=== PATIENT | female | born 1990 | race American Indian/Alaskan Native ===

== ENCOUNTER 2020-01-23 05:35 | Emergency (ER) | payer SELFPAY ==
--- NOTE | 2020-01-23 06:04 | Emergency Department Report ---
<PIEDAD HUDSON S - Last Filed: 01/25/20 12:52> ED General Adult HPI - General Chief complaint: Psych Stated complaint: SUICIDAL IDEATIONS Time Seen by Provider: 01/23/20 06:03 - Related Data Previous Rx's Medication Instructions Recorded Last Taken Type DOXYCYCLINE Hyclate [Vibramycin 100 mg PO BID #24 tab 01/25/20 Unknown Rx CAP] Nitrofurantoin Bennett/M-Cryst 100 mg PO Q12HR #14 capsule 01/25/20 Unknown Rx [Macrobid CAP] Sertraline [Zoloft] 50 mg PO DAILY #30 tablet 01/25/20 Unknown Rx Allergies Allergy/AdvReac Type Severity Reaction Status Date / Time No Known Allergies Allergy Unverified 01/23/20 05:56 ED Past Medical Hx - Medications Home Medications: Home Medications Medication Instructions Recorded Confirmed Last Taken Type DOXYCYCLINE Hyclate [Vibramycin 100 mg PO BID #24 tab 01/25/20 Unknown Rx CAP] Nitrofurantoin Bennett/M-Cryst 100 mg PO Q12HR #14 capsule 01/25/20 Unknown Rx [Macrobid CAP] Sertraline [Zoloft] 50 mg PO DAILY #30 tablet 01/25/20 Unknown Rx ED Medical Decision Making - Lab Data Result diagrams: 01/23/20 06:31 01/23/20 14:20 - Medical Decision Making I was brought this patient's chart after the psychiatric team evaluated the patient today, rescinded the 1013, and deemed the patient appropriate for discharge. The patient does deny any current suicidal ideations. She denies homicidal ideations. She is awake, oriented, and does not express any acute psychosis. The patient will be discharged home with outpatient referrals for psychiatry, TUNNEL MINER, and primary care. She has been given a prescription to continue her doxycycline. She was written for Zoloft by the psychiatric team. The patient has been instructed to return to the emergency department with any worsening of her symptoms, thoughts of harming herself or others, or with any acute distress. ED Disposition Clinical Impression: Alcoholic liver disease, Hypokalemia, Hypomagnesemia, Acute abdominal pain, History of chest pain, Suicidal ideation, History of syncope, History of drug overdose, Medical clearance for psychiatric admission, Thrombocytopenia, Trichomoniasis, PID (acute pelvic inflammatory disease), Ovarian cyst, Hydrosalpinx Disposition: DC-01 TO HOME OR SELFCARE Is pt being admited?: No Condition: Good Instructions: Suicidal Feelings: How to Help Yourself, Pelvic Inflammatory Dise ase Additional Instructions: Please follow-up with the [facility] facility, or any of the outpatient referrals given to you by the psychiatric team. Please follow-up with a primary care physician in the next few days. Please follow-up with an TUNNEL MINER. Take your medications as prescribed. Return to the emergency department with any worsening of your symptoms, thoughts of harming self or others, or with any acute distress. Outpatient [facility] Resources: [facility] ([facility]) [address] [place] [address] / Saturday thru Saturday - 8am - 5pm [facility] Address: [address] [place] [address] Saturday thru Saturday- 7am-2pm [facility] Address: [address] [place] [address] Saturday thru Saturday: 8:30AM-5PM CRISIS RESOURCES OR Crisis Line: Suicide Prevention Line: Crisis Text Line: Text [place] to [phone] Emergency: 911 Prescriptions: Nitrofurantoin Bennett/M-Cryst [Macrobid CAP] 100 mg PO Q12HR #14 capsule DOXYCYCLINE Hyclate [Vibramycin CAP] 100 mg PO BID #24 tab Sertraline [Zoloft] 50 mg PO DAILY #30 tablet Referrals: [facility] [Provider Group] - 3-5 Days [facility] [Provider Group] - 3-5 Days [facility] [Outside] - 3-5 Days [facility] [Primary Care Provider] - 3-5 Days <TOMY BRADLEY - Last Filed: 01/25/20 20:26> ED General Adult HPI - General PUI?: No Source: patient, EMS (Verbal report received from emergency medical services. EMS documentation not available at time of chart dictation ), RN notes reviewed Mode of arrival: Stretcher Limitations: Physical Limitation, Other (Intoxicated, disorganized, and patient is a poor historian) - History of Present Illness Initial comments: The patient was evaluated in the emergency department for symptoms described in the history of present illness. He/she was evaluated in the context of the global COVID-19 pandemic, which necessitated consideration that the patient might be at risk for infection with the virus that causes COVID-19. Institutional protocols and algorithms that pertain to the evaluation of patients at risk for COVID-19 are in a state of rapid change based on information released by regulatory bodies including the CDC and federal and state organizations. These policies and algorithms were followed during the patient's care in the emergency department. Please note that these policies, procedures and recommendations changed on a rapid basis. Patient is a 29-year-old female. She is not known to myself previously. Apparently she has a history of bipolar and asthma. She is brought to the hospital by emergency medical services. Patient reportedly attempted to overdose on ecstasy and street drugs, unknown what time of ingestion, as well as alcohol. Reportedly, she was trying to commit suicide. After the reported ingestion, she apparently called 911. Police Department and EMS arrived at the scene, where they indicate that the patient was in a [place] house. EMS w reports to myself that patient may have fainted, there are no bystanders that can offer collateral information or additional history. Patient herself is intoxicated, disorganized and tearful. She states that she attempted to overdose on ecstasy, alcohol and street drugs. She is not sure if she took Tylenol or aspirin. She does not know exactly what time the ingestion took place. Patient also states that she has chest pain which she has difficulty describing. Patient also describes paralumbar and lower back pain, and abdominal pain. The patient is not sure if she hit her head. She is not sure if she is having headache, neck pain. Patient is intoxicated, disorganized and a poor historian, she therefore has difficulty describing the qualitative nature of her symptoms. She indicates that her abdominal pain increases with palpation. She does not describe exacerbating or relieving factors for her chest pain, or lower back pain. She states that she is depressed and suicidal. She has difficulty further elaborating on this. -: unknown Location: chest, back, abdomen Radiation: other Quality: other Consistency: other Improves with: other Worsens with: other Associated Symptoms: other ED Review of Systems ROS: Stated complaint: SUICIDAL IDEATIONS Other details as noted in HPI Comment: Unobtainable due to pts medical conditions (As per history of present illness) ED Past Medical Hx - Past Medical History Previous Medical History?: Yes Hx Psychiatric Treatment: Yes (bipolar) Hx Asthma: Yes - Surgical History Past Surgical History?: No - Social History Smoking Status: Current Every Day Smoker Substance Use Type: Alcohol, Cocaine, Marijuana, Prescribed, Other ED Physical Exam - General Limitations: Other (Intoxicated, disorganized, and a poor historian) General appearance: appears intoxicated, anxious, in distress, obese - Head Head exam: Present: atraumatic, normocephalic - Eye Eye exam: Present: normal appearance, EOMI. Absent: nystagmus - ENT ENT exam: Present: normal exam, mucous membranes dry, normal external ear exam - Neck Neck exam: Present: normal inspection, full ROM. Absent: tenderness, meningismus - Respiratory Respiratory exam: Present: normal lung sounds bilaterally. Absent: respiratory distress, wheezes, rales, rhonchi, stridor, decreased breath sounds - Cardiovascular Cardiovascular Exam: Present: normal rhythm, tachycardia, normal heart sounds. Absent: systolic murmur, diastolic murmur, rubs, gallop - GI/Abdominal GI/Abdominal exam: Present: soft, tenderness. Absent: distended, guarding, rebound, rigid, pulsatile mass - External exam: Present: normal external exam, other (Chaperoned by nurse [facility]). Absent: erythema, swelling, lesions, lacerations, ecchymosis, bleeding Speculum exam: Present: normal speculum exam, vaginal discharge, other (Chaperoned by nurse [facility]). Absent: erythema, cervical discharge, vaginal bleeding, foreign body, tissue, laceration Bi-manual exam: Present: cervical motion tendernes. Absent: adnexal tenderness, adnexal mass, uterine enlargement, uterine tenderness - Extremities Exam Extremities exam: Present: normal inspection, full ROM, other (2+ pulses noted in the bilateral upper and lower extremities. There is no palpable cord. negative Homans sign. Muscular compartments are soft. The pelvis is stable.). Absent: pedal edema, calf tenderness - Back Exam Back exam: Present: normal inspection, full ROM. Absent: tenderness, CVA tenderness (R), CVA tenderness (L), paraspinal tenderness, vertebral tenderness - Neurological Exam Neurological exam: Present: alert, other (No facial droop. Tongue midline. Extraocular movements intact bilaterally. Facial sensation intact to light touch in V1, V2, V3 distribution bilaterally. 5 and a 5 strength in 4 extremities. Sensation intact to light touch in 4 extremities.) - Psychiatric Psychiatric exam: Present: agitated, anxious, suicidal ideation - Skin Skin exam: Present: warm, dry, intact, normal color. Absent: rash ED Course Vital Signs 01/23/20 01/23/20 01/23/20 05:57 06:10 06:30 Temperature 98.7 F 98.3 F Pulse Rate 115 H 117 H 116 H Respiratory 18 18 18 Rate Blood Pressure 142/90 134/103 Blood Pressure 128/89 [Left] O2 Sat by Pulse 100 100 100 Oximetry 01/23/20 01/23/20 01/23/20 06:51 07:00 07:15 Temperature Pulse Rate 130 H 107 H 113 H Respiratory 20 18 13 Rate Blood Pressure 134/103 129/100 126/96 Blood Pressure [Left] O2 Sat by Pulse 97 100 99 Oximetry 01/23/20 01/23/20 01/23/20 07:30 07:45 07:54 Temperature Pulse Rate 103 H 101 H Respiratory 15 19 16 Rate Blood Pressure 134/99 138/102 Blood Pressure [Left] O2 Sat by Pulse 99 99 100 Oximetry 01/23/20 01/23/20 01/23/20 08:07 08:15 08:30 Temperature Pulse Rate 115 H 114 H 107 H Respiratory 22 15 18 Rate Blood Pressure 138/102 143/96 143/91 Blood Pressure [Left] O2 Sat by Pulse 96 99 99 Oximetry 01/23/20 01/23/20 01/23/20 10:15 12:31 12:45 Temperature Pulse Rate 120 H 137 H 118 H Respiratory 18 21 22 Rate Blood Pressure 136/96 133/80 133/80 Blood Pressure [Left] O2 Sat by Pulse 100 100 100 Oximetry 01/23/20 01/23/20 01/23/20 13:00 13:15 13:31 Temperature Pulse Rate 126 H 114 H 117 H Respiratory 24 22 22 Rate Blood Pressure 132/82 132/82 132/82 Blood Pressure [Left] O2 Sat by Pulse 100 100 100 Oximetry 01/23/20 01/23/20 01/23/20 13:45 14:15 14:31 Temperature Pulse Rate 118 H 116 H 112 H Respiratory 25 H 24 20 Rate Blood Pressure 132/82 124/75 124/75 Blood Pressure [Left] O2 Sat by Pulse 98 98 99 Oximetry 01/23/20 01/23/20 01/23/20 14:42 14:45 15:00 Temperature Pulse Rate 112 H 111 H Respiratory 16 18 21 Rate Blood Pressure 124/75 137/80 Blood Pressure [Left] O2 Sat by Pulse 99 97 Oximetry 01/23/20 01/23/20 01/23/20 15:15 15:31 15:45 Temperature Pulse Rate 110 H 111 H 109 H Respiratory 21 20 18 Rate Blood Pressure 137/80 137/80 137/80 Blood Pressure [Left] O2 Sat by Pulse 97 97 98 Oximetry 01/23/20 01/23/20 01/23/20 16:00 16:31 16:45 Temperature Pulse Rate 113 H 113 H 114 H Respiratory 20 22 22 Rate Blood Pressure 137/80 134/76 134/76 Blood Pressure [Left] O2 Sat by Pulse 97 97 100 Oximetry 01/23/20 01/23/20 01/23/20 17:00 17:15 17:31 Temperature Pulse Rate 104 H 102 H 109 H Respiratory 21 22 23 Rate Blood Pressure 122/73 122/73 122/73 Blood Pressure [Left] O2 Sat by Pulse 98 98 98 Oximetry 01/23/20 01/23/20 01/23/20 17:45 18:15 18:31 Temperature Pulse Rate 112 H 112 H 107 H Respiratory 26 H 20 22 Rate Blood Pressure 122/73 116/75 122/73 Blood Pressure [Left] O2 Sat by Pulse 100 100 99 Oximetry 01/23/20 01/23/20 01/23/20 18:45 18:49 19:00 Temperature Pulse Rate 105 H 107 H 106 H Respiratory 21 23 21 Rate Blood Pressure 122/73 122/73 117/72 Blood Pressure [Left] O2 Sat by Pulse 100 100 98 Oximetry 01/23/20 01/23/20 01/23/20 19:15 19:31 19:41 Temperature Pulse Rate 102 H 104 H Respiratory 20 18 18 Rate Blood Pressure 117/72 119/72 Blood Pressure [Left] O2 Sat by Pulse 98 100 100 Oximetry 01/23/20 01/23/20 01/23/20 19:45 20:00 20:15 Temperature Pulse Rate 102 H 111 H 98 H Respiratory 19 21 18 Rate Blood Pressure 119/72 118/85 118/85 Blood Pressure [Left] O2 Sat by Pulse 100 98 100 Oximetry 01/23/20 01/23/20 01/23/20 20:31 20:45 21:01 Temperature Pulse Rate 117 H 97 H 107 H Respiratory 22 21 19 Rate Blood Pressure 118/85 118/85 57/31 Blood Pressure [Left] O2 Sat by Pulse 99 97 96 Oximetry 01/23/20 01/23/20 01/23/20 21:15 21:31 21:45 Temperature Pulse Rate 100 H 109 H 99 H Respiratory 22 23 21 Rate Blood Pressure 57/31 57/31 57/31 Blood Pressure [Left] O2 Sat by Pulse 96 98 98 Oximetry 01/23/20 01/23/20 01/23/20 22:00 22:15 22:31 Temperature Pulse Rate 105 H 105 H 103 H Respiratory 20 21 21 Rate Blood Pressure 118/72 118/72 118/72 Blood Pressure [Left] O2 Sat by Pulse 97 96 Oximetry 01/23/20 01/23/20 01/23/20 22:45 23:00 23:15 Temperature Pulse Rate 109 H 101 H 111 H Respiratory 20 18 23 Rate Blood Pressure 118/72 118/75 118/75 Blood Pressure [Left] O2 Sat by Pulse 98 100 Oximetry 01/23/20 01/23/20 01/24/20 23:31 23:45 00:01 Temperature Pulse Rate 110 H 113 H 115 H Respiratory 20 22 21 Rate Blood Pressure 118/75 118/75 119/80 Blood Pressure [Left] O2 Sat by Pulse 100 100 91 Oximetry 01/24/20 01/24/20 01/24/20 00:15 00:31 00:45 Temperature Pulse Rate 111 H 114 H 112 H Respiratory 20 21 22 Rate Blood Pressure 119/80 119/80 119/80 Blood Pressure [Left] O2 Sat by Pulse 100 99 99 Oximetry 01/24/20 01/24/20 01/24/20 01:00 01:15 02:00 Temperature Pulse Rate 108 H 108 H 105 H Respiratory 23 16 22 Rate Blood Pressure 123/86 119/80 119/89 Blood Pressure [Left] O2 Sat by Pulse 99 98 98 Oximetry 01/24/20 01/24/20 01/24/20 02:15 02:31 02:45 Temperature Pulse Rate 107 H 105 H 105 H Respiratory 20 23 18 Rate Blood Pressure 123/86 123/86 123/86 Blood Pressure [Left] O2 Sat by Pulse 99 98 97 Oximetry 01/24/20 01/24/20 01/24/20 03:00 03:15 03:31 Temperature Pulse Rate 101 H 105 H 105 H Respiratory 16 19 18 Rate Blood Pressure 126/89 126/89 126/89 Blood Pressure [Left] O2 Sat by Pulse 97 96 Oximetry 01/24/20 01/24/20 01/24/20 03:45 04:03 04:15 Temperature Pulse Rate 104 H Respiratory 19 Rate Blood Pressure 126/89 126/89 126/89 Blood Pressure [Left] O2 Sat by Pulse 97 84 98 Oximetry 01/24/20 01/24/20 01/24/20 04:31 04:45 05:00 Temperature Pulse Rate 110 H 117 H 107 H Respiratory 22 19 20 Rate Blood Pressure 126/89 126/89 124/78 Blood Pressure [Left] O2 Sat by Pulse 97 97 Oximetry 01/24/20 01/24/20 01/24/20 05:15 05:31 05:45 Temperature Pulse Rate 114 H 108 H 103 H Respiratory 25 H 17 17 Rate Blood Pressure 126/89 126/89 126/89 Blood Pressure [Left] O2 Sat by Pulse 100 97 100 Oximetry 01/24/20 01/24/20 01/24/20 06:00 06:15 06:31 Temperature Pulse Rate 99 H 112 H 111 H Respiratory 18 21 15 Rate Blood Pressure 131/76 131/76 131/76 Blood Pressure [Left] O2 Sat by Pulse 98 98 Oximetry 01/24/20 01/24/20 01/24/20 06:45 07:00 07:47 Temperature 98.1 F Pulse Rate 124 H 108 H 90 Respiratory 16 22 18 Rate Blood Pressure 131/76 133/78 Blood Pressure 123/79 [Left] O2 Sat by Pulse 100 98 Oximetry 01/24/20 01/24/20 01/25/20 08:43 20:41 01:54 Temperature 98.6 F 98.0 F Pulse Rate 100 H 102 H Respiratory 18 20 18 Rate Blood Pressure Blood Pressure 146/78 138/90 [Left] O2 Sat by Pulse 96 100 Oximetry 01/25/20 08:07 Temperature 98.6 F Pulse Rate 70 Respiratory 18 Rate Blood Pressure Blood Pressure 139/89 [Left] O2 Sat by Pulse 99 Oximetry - Reevaluation(s) Reevaluation #1: 01/23/20 06:21 Differential diagnosis, including but not limited to: Overdose, suicidality, closed head injury, cervical spine injury, pneumonia, intra-abdominal infection, abdominal wall sprain/strain, obstruction, pulmonary embolism, medical clearance for psychiatric placement Assessment and plan: 29-year-old female who is intoxicated, impaired, disorganized and a poor historian, who contacted emergency medical services after overdose, and reports having fainted. Patient is afebrile with reassuring vital signs with exception of tachycardia. She is diffusely tender over her abdomen. 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 Her tachycardia is likely secondary to anxiety, ecstasy ingestion, and dehydration. She is not hypoxic or tachypneic. I think a pulmonary embolism is unlikely, however, D-dimer is pending. Based off of the history, I do find the patient to be low risk by Wells criteria and pretest probability for pulmonary embolism. Most likely diagnosis is orthostasis, polysubstance intoxication, with noncardiac chest pain Reevaluation #2: 01/23/20 07:23 D-dimer negative. Troponin negative. Patient at very low risk for major adverse cardiac event as per heart score. Laboratory studies demonstrate mild leukopenia, thrombocytopenia, hyponatremia, hypokalemia, hypomagnesemia, and transaminitis. All of these are likely secondary to to alcoholism. Metabolic acidosis also likely secondary to the aforementioned. D-dimer negative. X-ray of the chest, CT scan of the brain, CT scan of the cervical spine negative. Patient is also not . We will continue IV fluids, initiate potassium and magnesium replenishment. Standing orders also initiated for alcohol withdrawal, as well as a multivitamin and folic acid. Urinalysis is pending at this time. EKG morphology likely secondary to mild hypokalemia and mild hypomagnesemia. CT scan abdomen pelvis is pending at this time. 01/23/20 07:28 Reevaluation #3: 01/23/20 07:53 Tachycardia improving, heart rate 106 bpm. Patient eating and drinking without difficulty. Patient was fed without my personal knowledge. CT scan abdomen pelvis, right upper quadrant ultrasound pending. 01/23/20 09:57 CT scan of the abdomen pelvis is reviewed and appreciated. Pelvic ultrasound ordered. Gynecologic examination performed. Belly improved on repeat examination. Patient eating and drinking without difficulty. Formal interpretation of ultrasound pending. Urinalysis pending. Repeat labs, troponin, EKG pending. Patient with minimal cervical motion tenderness on pelvic exam, however, no significant adnexal tenderness. What appears to be whitish physiologic discharge noted on pelvic exam 01/23/20 09:57 Reevaluation #4: 01/23/20 11:49 Reassessed. Eating food. Abdominal exam improved. Belly soft on repeat exam. Right upper quadrant ultrasound suggestive of fatty liver disease. Pelvic ultrasound not suggestive of ovarian torsion or tubo-ovarian abscess. Wet prep shows trichomoniasis. We will treat empirically with Flagyl, ceftriaxone and do xycycline for presumed pelvic inflammatory disease and trichomoniasis. Repeat basic metabolic panel worsened. This is likely because patient has not received full complement of ordered IV fluids, and potassium/magnesium replenishment. Repeat basic metabolic panel and labs ordered for 1:30 PM. Assuming improvement in anion gap acidosis, improvement in electrolytes, anticipate suitability for psychiatric placement. Repeat EKG unchanged from prior. It is not consistent with a STEMI. 01/24/20 06:47 Reevaluation #5: 01/23/20 14:56 Repeat laboratory studies have reviewed and appreciated. Anion gap has closed. Hypomagnesemia is improving. Mild decrease in calcium is likely dilutional. Tachycardia improving, patient resting comfortably at this time. At this point in time, patient does not appear to have an immediate medical contraindication to psychiatric admission, evaluation and consultation. We will continue antibiotic therapy, potassium supplementation, magnesium supplementation, pending placement. 01/23/20 14:56 please note that if the patient were not placed on a 1013 hold or psychiatric hold, she will be discharged for her presumptive trichomoniasis and PID, with appropriate antibiotics, pain medication and nausea medication, instructions to follow-up with a primary care doctor or auto clutch rebuilder.. She would also be discharged to follow-up with her primary care doctor for her transaminitis, electrolyte derangements, and thrombocytopenia, with instructions to abstain from alcohol consumption. This patient does not meet criteria at this time for inpatient hospitalization or admission. 01/25/20 20:24 Patient was discharged earlier on today. Unclear if urine cultures are reviewed. I have reviewed the urine culture. Patient may have simultaneous PID, as well as bacteriuria. Macrobid prescription is ordered by myself, will be printed out, after review of culture results. I will give the prescription to the charge nurse, and have her contact the patient to arrange pickup of prescription. ED Medical Decision Making - Lab Data Result diagrams: 01/23/20 06:31 01/23/20 14:20 Vital Signs 01/23/20 01/23/20 05:57 06:10 Temperature 98.7 F 98.3 F Pulse Rate 115 H 117 H Respiratory 18 18 Rate Blood Pressure 142/90 Blood Pressure 128/89 [Left] O2 Sat by Pulse 100 100 Oximetry Vital Signs 01/23/20 01/23/20 05:57 06:10 Temperature 98.7 F 98.3 F Pulse Rate 115 H 117 H Respiratory 18 18 Rate Blood Pressure 142/90 Blood Pressure 128/89 [Left] O2 Sat by Pulse 100 100 Oximetry Lab Results 01/23/20 01/23/20 01/23/20 Range/Units 06:31 06:31 06:31 WBC 4.2 L (4.5-11.0) K/mm3 RBC 4.72 (3.65-5.03) M/mm3 Hgb 12.7 (10.1-14.3) gm/dl Hct 38.5 (30.3-42.9) % MCV 82 (79-97) fl MCH 27 L (28-32) pg MCHC 33 (30-34) % RDW 33.5 H (13.2-15.2) % Plt Count 70 L (140-440) K/mm3 PT 15.1 H (12.2-14.9) Sec. INR 1.17 H (0.87-1.13) APTT 33.4 (24.2-36.6) Sec. D-Dimer 222.43 (0-234) ng/mlDDU Sodium 131 L (137-145) mmol/L Potassium 3.1 L (3.6-5.0) mmol/L Chloride 87.5 L (98-107) mmol/L Carbon Dioxide 23 (22-30) mmol/L Anion Gap 24 mmol/L BUN 8 (7-17) mg/dL Creatinine 0.8 (0.6-1.2) mg/dL Estimated GFR > 60 ml/min BUN/Creatinine Ratio 10 % Glucose 115 H (65-100) mg/dL Calcium 9.9 (8.4-10.2) mg/dL Magnesium (1.7-2.3) mg/dL Total Bilirubin 2.50 H (0.1-1.2) mg/dL AST 199 H (5-40) units/L ALT 79 H (7-56) units/L Alkaline Phosphatase 86 (35-129) units/L Total Creatine Kinase (30-135) units/L Troponin T < 0.010 (0.00-0.029) ng/mL Total Protein 9.3 H (6.3-8.2) g/dL Albumin 4.5 (3.9-5) g/dL Albumin/Globulin Ratio 0.9 % Lipase (13-60) units/L HCG, Quant (0-4) mIU/mL Salicylates (2.8-20.0) mg/dL Acetaminophen (10.0-30.0) ug/mL Plasma/Serum Alcohol (0-0.07) % 01/23/20 01/23/20 01/23/20 Range/Units 06:31 06:31 06:31 WBC (4.5-11.0) K/mm3 RBC (3.65-5.03) M/mm3 Hgb (10.1-14.3) gm/dl Hct (30.3-42.9) % MCV (79-97) fl MCH (28-32) pg MCHC (30-34) % RDW (13.2-15.2) % Plt Count (140-440) K/mm3 PT (12.2-14.9) Sec. INR (0.87-1.13) APTT (24.2-36.6) Sec. D-Dimer (0-234) ng/mlDDU Sodium (137-145) mmol/L Potassium (3.6-5.0) mmol/L Chloride (98-107) mmol/L Carbon Dioxide (22-30) mmol/L Anion Gap mmol/L BUN (7-17) mg/dL Creatinine (0.6-1.2) mg/dL Estimated GFR ml/min BUN/Creatinine Ratio % Glucose (65-100) mg/dL Calcium (8.4-10.2) mg/dL Magnesium (1.7-2.3) mg/dL Total Bilirubin (0.1-1.2) mg/dL AST (5-40) units/L ALT (7-56) units/L Alkaline Phosphatase (35-129) units/L Total Creatine Kinase (30-135) units/L Troponin T (0.00-0.029) ng/mL Total Protein (6.3-8.2) g/dL Albumin (3.9-5) g/dL Albumin/Globulin Ratio % Lipase (13-60) units/L HCG, Quant 0.579 (0-4) mIU/mL Salicylates < 0.3 L (2.8-20.0) mg/dL Acetaminophen 5.0 L (10.0-30.0) ug/mL Plasma/Serum Alcohol (0-0.07) % 01/23/20 01/23/20 01/23/20 Range/Units 06:31 06:31 06:31 WBC (4.5-11.0) K/mm3 RBC (3.65-5.03) M/mm3 Hgb (10.1-14.3) gm/dl Hct (30.3-42.9) % MCV (79-97) fl MCH (28-32) pg MCHC (30-34) % RDW (13.2-15.2) % Plt Count (140-440) K/mm3 PT (12.2-14.9) Sec. INR (0.87-1.13) APTT (24.2-36.6) Sec. D-Dimer (0-234) ng/mlDDU Sodium (137-145) mmol/L Potassium (3.6-5.0) mmol/L Chloride (98-107) mmol/L Carbon Dioxide (22-30) mmol/L Anion Gap mmol/L BUN (7-17) mg/dL Creatinine (0.6-1.2) mg/dL Estimated GFR ml/min BUN/Creatinine Ratio % Glucose (65-100) mg/dL Calcium (8.4-10.2) mg/dL Magnesium 1.30 L (1.7-2.3) mg/dL Total Bilirubin (0.1-1.2) mg/dL AST (5-40) units/L ALT (7-56) units/L Alkaline Phosphatase (35-129) units/L Total Creatine Kinase 147 H (30-135) units/L Troponin T (0.00-0.029) ng/mL Total Protein (6.3-8.2) g/dL Albumin (3.9-5) g/dL Albumin/Globulin Ratio % Lipase 92 H (13-60) units/L HCG, Quant (0-4) mIU/mL Salicylates (2.8-20.0) mg/dL Acetaminophen (10.0-30.0) ug/mL Plasma/Serum Alcohol 0.03 (0-0.07) % Vital Signs 01/23/20 01/23/20 01/23/20 05:57 06:10 06:30 Temperature 98.7 F 98.3 F Pulse Rate 115 H 117 H 116 H Respiratory 18 18 18 Rate Blood Pressure 142/90 134/103 Blood Pressure 128/89 [Left] O2 Sat by Pulse 100 100 100 Oximetry 01/23/20 01/23/20 01/23/20 06:51 07:00 07:15 Temperature Pulse Rate 130 H 107 H 113 H Respiratory 20 18 13 Rate Blood Pressure 134/103 129/100 126/96 Blood Pressure [Left] O2 Sat by Pulse 97 100 99 Oximetry 01/23/20 01/23/20 01/23/20 07:30 07:45 07:54 Temperature Pulse Rate 103 H 101 H Respiratory 15 19 16 Rate Blood Pressure 134/99 138/102 Blood Pressure [Left] O2 Sat by Pulse 99 99 100 Oximetry 01/23/20 01/23/20 01/23/20 08:07 08:15 08:30 Temperature Pulse Rate 115 H 114 H 107 H Respiratory 22 15 18 Rate Blood Pressure 138/102 143/96 143/91 Blood Pressure [Left] O2 Sat by Pulse 96 99 99 Oximetry 01/23/20 01/23/20 01/23/20 10:15 12:31 12:45 Temperature Pulse Rate 120 H 137 H 118 H Respiratory 18 21 22 Rate Blood Pressure 136/96 133/80 133/80 Blood Pressure [Left] O2 Sat by Pulse 100 100 100 Oximetry 01/23/20 01/23/20 01/23/20 13:00 13:15 13:31 Temperature Pulse Rate 126 H 114 H 117 H Respiratory 24 22 22 Rate Blood Pressure 132/82 132/82 132/82 Blood Pressure [Left] O2 Sat by Pulse 100 100 100 Oximetry 01/23/20 01/23/20 01/23/20 13:45 14:15 14:31 Temperature Pulse Rate 118 H 116 H 112 H Respiratory 25 H 24 20 Rate Blood Pressure 132/82 124/75 124/75 Blood Pressure [Left] O2 Sat by Pulse 98 98 99 Oximetry 01/23/20 14:42 Temperature Pulse Rate Respiratory 16 Rate Blood Pressure Blood Pressure [Left] O2 Sat by Pulse Oximetry - EKG Data -: EKG Interpreted by Ri EKG shows normal: sinus rhythm Rate: tachycardia - EKG Data When compared to previous EKG there are: previous EKG unavailable 01/23/20 06:23 Sinus rhythm, tachycardia, normal axis, QTC 542 ms, borderline high left ventricular voltage, Q waves noted in the inferior leads. This EKG is abnormal. This EKG is not a STEMI. There is no prior for comparison. 01/23/20 11:51 EKG #2 is unchanged from prior EKG - Radiology Data Radiology results: pending, report reviewed, image reviewed X-ray the chest is negative for acute disease. Noncontrast CT scan of the brain, cervical spine negative for acute findings. CT abdomen pelvis w con INDICATION: Acute abdominal pain. COMPARISON: None TECHNIQUE: Abdominal and pelvic CT exam performed. All CT scans at this location are performed using CT dose reduction for ALARA by means of automated exposure control. FINDINGS: CT ABDOMEN and PELVIS: Lung Bases: No significant abnormality. Liver: Decreased attenuation consistent with severe hepatic steatosis. Biliary: No significant abnormality. Spleen: No significant abnormality. Pancreas: No significant abnormality. Adrenals: No significant abnormality. Kidneys: No significant abnormality. Lymphatics: No lymphadenopathy. Vasculature: No significant abnormality. Bowel: No significant abnormality. Normal appendix. Pelvis: Left hydrosalpinx with a 3.4 cm left ovarian cyst. No surrounding stranding. Osseous Structures: No aggressive osseous lesion. Additional Findings: None IMPRESSION: 1. Nonspecific left hydrosalpinx and a 3.4 cm simple appearing left ovarian cyst. Can consider ultrasound pelvis if clinically indicated. 2. Severe hepatic steatosis. Signer Name: Morro Houser MD Signed: 01/23/2020 7:27 AM Workstation Name: [id number] CT head/brain wo con INDICATION: Syncope, head trauma. TECHNIQUE: Routine CT head without contrast. All CT scans at this location are performed using CT dose reduction for ALARA by means of automated exposure control. COMPARISON: None. FINDINGS: BRAIN / INTRACRANIAL CONTENTS: No acute hemorrhage, brain edema, mass effect, or hydrocephalus. Normal abraham-white differentiation. No chronic infarct or focal atrophy. Normal brain volume and ventricular/sulcal size for age. CALVARIUM/SKULL BASE/CRANIOCERVICAL JUNCTION: No evidence of fracture. ORBITS: No significant abnormality of visualized orbits. SINUSES / MASTOIDS: No significant abnormality of visualized sinuses and mastoid air cells. ADDITIONAL FINDINGS: None. IMPRESSION: 1. No acute post-traumatic intracranial abnormality. Signer Name: Claudio Ceron MD Signed: 01/23/2020 6:06 AM Workstation Name: [id number] CT CERVICAL SPINE WITHOUT CONTRAST INDICATION: Syncope, head injury.. TECHNIQUE: Axial CT images of the spine were obtained. Sagittal and coronal reformatted images were produced. All CT scans at this location are performed using CT dose reduction for ALARA by means of automated exposure control. COMPARISON: None available. FINDINGS: ACUTE FRACTURE(S) OR SUBLUXATION: None. SPINAL DEGENERATIVE CHANGES: No significant degenerative changes. PARASPINAL SOFT TISSUES: No soft tissue swelling or other acute abnormalities. ADDITIONAL FINDINGS: No significant additional findings. IMPRESSION: 1. No acute fracture or subluxation in the spine in neutral position. Signer Name: Claudio Ceron MD Signed: 01/23/2020 6:05 AM Workstation Name: [id number] CHEST 1 VIEW 01/23/2020 6:11 AM INDICATION / CLINICAL INFORMATION: Syncope. COMPARISON: 05/30/2019 FINDINGS: SUPPORT DEVICES: None. HEART / MEDIASTINUM: No significant abnormality. LUNGS / PLEURA: No significant pulmonary or pleural abnormality. No pneumothorax. ADDITIONAL FINDINGS: No significant additional findings. IMPRESSION: 1. No acute findings. Signer Name: Claudio Ceron MD Signed: 01/23/2020 6:14 AM US pelvis duplex doppler comp, US transvaginal INDICATION / CLINICAL INFORMATION: Lower abdominal pain, hydro salplinx. TECHNIQUE: Transabdominal and Transvaginal. Duplex Color Doppler used: Yes. COMPARISON: CT dated same day FINDINGS: UTERUS: No significant abnormality uterus identified. -Endometrial stripe measures 0.9 cm. - Mass lesions: None. RIGHT ADNEXA: No significant ovarian cyst or mass. Normal color Doppler blood flow. LEFT ADNEXA: Dilated fallopian tube. There is a left cystic lesion measuring 3.4 cm with homogeneous low level internal echoes. No internal vascularity. Normal color Doppler blood flow. URINARY BLADDER: No significant abnormality. FREE FLUID: None. ADDITIONAL FINDINGS: None. IMPRESSION: 1. There is approximately 3.4 cm left ovarian lesion with low-level homogeneous internal echoes which likely represents a hemorrhagic cyst versus endometrioma. Associated left hydrosalpinx. Recommend follow-up 8-12 weeks preferably within the patient's first 2 weeks of menstrual cycle for further characterization. Signer Name: Morro Houser MD Signed: 01/23/2020 10:11 AM Workstation Name: [employer] US pelvis duplex doppler comp, US transvaginal INDICATION / CLINICAL INFORMATION: Lower abdominal pain, hydro salplinx. TECHNIQUE: Transabdominal and Transvaginal. Duplex Color Doppler used: Yes. COMPARISON: CT dated same day FINDINGS: UTERUS: No significant abnormality uterus identified. -Endometrial stripe measures 0.9 cm. - Mass lesions: None. RIGHT ADNEXA: No significant ovarian cyst or mass. Normal color Doppler blood flow. LEFT ADNEXA: Dilated fallopian tube. There is a left cystic lesion measuring 3.4 cm with homogeneous low level internal echoes. No internal vascularity. Normal color Doppler blood flow. URINARY BLADDER: No significant abnormality. FREE FLUID: None. ADDITIONAL FINDINGS: None. IMPRESSION: 1. There is approximately 3.4 cm left ovarian lesion with low-level homogeneous internal echoes which likely represents a hemorrhagic cyst versus endometrioma. Associated left hydrosalpinx. Recommend follow-up 8-12 weeks preferably within the patient's first 2 weeks of menstrual cycle for further characterization. Signer Name: Morro Houser MD Signed: 01/23/2020 10:11 AM Workstation Name: [employer] US abdomen limited INDICATION: abd pain, transaminits, elevated t bili COMPARISON: None. FINDINGS: Pancreas: No significant abnormality identified in the visualized portions of the pancreas. Abdominal aorta: Not well visualized IVC: Not well-visualized. Liver: Increased echogenicity. Gallbladder: No gallstones, gallbladder wall thickening, or pericholecystic fluid. Bile ducts: The common bile duct measures 5 mm. Right Kidney: No significant abnormality. Additional findings: No significant additional findings. IMPRESSION: Severe hepatic steatosis. Signer Name: Morro Houser MD Signed: 01/23/2020 10:16 AM Workstation Name: [id number] Critical care attestation.: If time is entered above; I have spent that time in minutes in the direct care of this critically ill patient, excluding procedure time. ED Disposition Is pt being admited?: No Does the pt Need Aspirin: No
[2020-01-23] MEDS ORDERED: LORazepam 2 MG/ML VIAL IM PRN (06:12)
[2020-01-23] MEDS ORDERED: SODIUM CHLORIDE 0.9% 1000 ML 2,000 ML IV ONE (06:12)
[2020-01-23] MEDS ORDERED: HALOPERIDOL LACTATE 5 MG/1 ML INJ IM PRN (06:12)
[2020-01-23 06:54] LABS: Hematocrit 38.5 % (30.3-42.9); Hemoglobin 12.7 gm/dl (10.1-14.3); Mean Corpuscular HGB Conc 33 % (30-34); Mean Corpuscular Volume 82 fl (79-97); Red Blood Count 4.72 M/mm3 (3.65-5.03)
[2020-01-23 07:02] LABS: INR 1.17 (0.87-1.13); Partial Thromboplastin Time 33.4 Sec. (24.2-36.6)
[2020-01-23 07:05] LABS: Platelet Count 70 K/mm3 (140-440); Red Cell Distribution Width 33.5 % (13.2-15.2)
--- NOTE | 2020-01-23 07:10 | Cat Scan Report ---
CT CERVICAL SPINE WITHOUT CONTRAST INDICATION: Syncope, head injury.. TECHNIQUE: Axial CT images of the spine were obtained. Sagittal and coronal reformatted images were produced. Al l CT scans at this location are performed using CT dose reduction for ALARA by means of automated exp osure control. COMPARISON: None available. FINDINGS: ACUTE FRACTURE(S) OR SUBLUXATION: None. SPINAL DEGENERATIVE CHANGES: No significant degenerative changes. PARASPINAL SOFT TISSUES: No soft tissue swelling or other acute abnormalities. ADDITIONAL FINDINGS: No significant additional findings. IMPRESSION: 1. No acute fracture or subluxation in the spine in neutral position. Signer Name: Claudio Ceron MD Signed: 01/23/2020 7:05 AM Workstation Name: [id number]
--- NOTE | 2020-01-23 07:11 | Cat Scan Report ---
CT head/brain wo con INDICATION: Syncope, head trauma. TECHNIQUE: Routine CT head without contrast. All CT scans at this location are performed using CT dose reduction for ALARA by means of automated exposure control. COMPARISON: None. FINDINGS: BRAIN / INTRACRANIAL CONTENTS: No acute hemorrhage, brain edema, mass effect, or hydrocephalus. Tena l abraham-white differentiation. No chronic infarct or focal atrophy. Normal brain volume and ventricula r/sulcal size for age. CALVARIUM/SKULL BASE/CRANIOCERVICAL JUNCTION: No evidence of fracture. ORBITS: No significant abnormality of visualized orbits. SINUSES / MASTOIDS: No significant abnormality of visualized sinuses and mastoid air cells. ADDITIONAL FINDINGS: None. IMPRESSION: 1. No acute post-traumatic intracranial abnormality. Signer Name: Claudio Ceron MD Signed: 01/23/2020 7:06 AM Workstation Name: [id number]
[2020-01-23 07:16] LABS: Alanine Aminotransferase 79 units/L (7-56); Albumin 4.5 g/dL (3.9-5); BUN/Creatinine Ratio 10; Blood Urea Nitrogen 8 mg/dL (7-17); Calcium 9.9 mg/dL (8.4-10.2); Hemolysis Index 2
--- NOTE | 2020-01-23 07:19 | XRay Report ---
CHEST 1 VIEW 01/23/2020 6:11 AM INDICATION / CLINICAL INFORMATION: Syncope. COMPARISON: 05/30/2019 FINDINGS: SUPPORT DEVICES: None. HEART / MEDIASTINUM: No significant abnormality. LUNGS / PLEURA: No significant pulmonary or pleural abnormality. No pneumothorax. ADDITIONAL FINDINGS: No significant additional findings. IMPRESSION: 1. No acute findings. Signer Name: Claudio Ceron MD Signed: 01/23/2020 7:14 AM Workstation Name: [id number]
[2020-01-23] MEDS ORDERED: MAGNESIUM SULFATE 2 GM/50 ML BAG IV ONE (07:20)
[2020-01-23] MEDS ORDERED: POTASSIUM CHLORIDE ER 20 MEQ TAB PO ONE ×2 (07:20→09:43)
[2020-01-23] MEDS ORDERED: MAGNESIUM OXIDE 400 MG TAB PO STA (07:20)
[2020-01-23] MEDS ORDERED: LORazepam 2 MG/ML VIAL IV PRN ×3 (07:21)
[2020-01-23] MEDS ORDERED: DEXTROSE 50% IN WATER (25GM) 50 ML VIAL IV PRN (07:22)
[2020-01-23] MEDS ORDERED: THIAMINE 100 MG, FOLIC ACID 1 MG, MULTIPLE VITAMIN INJ, ADULT 10 ML in SODIUM CHLORIDE ... IV ONE (08:00)
--- NOTE | 2020-01-23 08:31 | Cat Scan Report ---
CT abdomen pelvis w con INDICATION: Acute abdominal pain. COMPARISON: None TECHNIQUE: Abdominal and pelvic CT exam performed. All CT scans at this location are performed using CT dose reduction for ALARA by means of automated exposure control. FINDINGS: CT ABDOMEN and PELVIS: Lung Bases: No significant abnormality. Liver: Decreased attenuation consistent with severe hepatic steatosis. Biliary: No significant abnormality. Spleen: No significant abnormality. Pancreas: No significant abnormality. Adrenals: No significant abnormality. Kidneys: No significant abnormality. Lymphatics: No lymphadenopathy. Vasculature: No significant abnormality. Bowel: No significant abnormality. Normal appendix. Pelvis: Left hydrosalpinx with a 3.4 cm left ovarian cyst. No surrounding stranding. Osseous Structures: No aggressive osseous lesion. Additional Findings: None IMPRESSION: 1. Nonspecific left hydrosalpinx and a 3.4 cm simple appearing left ovarian cyst. Can consider ultras ound pelvis if clinically indicated. 2. Severe hepatic steatosis. Signer Name: Morro Houser MD Signed: 01/23/2020 8:27 AM Workstation Name: [id number]
[2020-01-23] MEDS ORDERED: ONDANSETRON 4 MG/2 ML INJ ONE (10:48)
[2020-01-23 11:08] LABS: Blood Urea Nitrogen 7 mg/dL (7-17); Calcium 9.7 mg/dL (8.4-10.2); Hemolysis Index 53
[2020-01-23 11:09] LABS: BUN/Creatinine Ratio 10
--- NOTE | 2020-01-23 11:16 | Ultrasound Report ---
US pelvis duplex doppler comp, US transvaginal INDICATION / CLINICAL INFORMATION: Lower abdominal pain, hydro salplinx. TECHNIQUE: Transabdominal and Transvaginal. Duplex Color Doppler used: Yes. COMPARISON: CT dated same day FINDINGS: UTERUS: No significant abnormality uterus identified. -Endometrial stripe measures 0.9 cm. - Mass lesions: None. RIGHT ADNEXA: No significant ovarian cyst or mass. Normal color Doppler blood flow. LEFT ADNEXA: Dilated fallopian tube. There is a left cystic lesion measuring 3.4 cm with homogeneous low level internal echoes. No internal vascularity. Normal color Doppler blood flow. URINARY BLADDER: No significant abnormality. FREE FLUID: None. ADDITIONAL FINDINGS: None. IMPRESSION: 1. There is approximately 3.4 cm left ovarian lesion with low-level homogeneous internal echoes which likely represents a hemorrhagic cyst versus endometrioma. Associated left hydrosalpinx. Recommend fo llow-up 8-12 weeks preferably within the patient's first 2 weeks of menstrual cycle for further linn cterization. Signer Name: Morro Houser MD Signed: 01/23/2020 11:11 AM Workstation Name: [id number]
--- NOTE | 2020-01-23 11:20 | Ultrasound Report ---
US abdomen limited INDICATION: abd pain, transaminits, elevated t bili COMPARISON: None. FINDINGS: Pancreas: No significant abnormality identified in the visualized portions of the pancreas. Abdominal aorta: Not well visualized IVC: Not well-visualized. Liver: Increased echogenicity. Gallbladder: No gallstones, gallbladder wall thickening, or pericholecystic fluid. Bile ducts: The common bile duct measures 5 mm. Right Kidney: No significant abnormality. Additional findings: No significant additional findings. IMPRESSION: Severe hepatic steatosis. Signer Name: Morro Houser MD Signed: 01/23/2020 11:16 AM Workstation Name: [id number]
[2020-01-23 11:43] LABS: Bilirubin,Urine SM (Negative); Blood,Urine SM (Negative); Color,Urine Amber (Yellow); Mucus,Urine FEW /HPF
[2020-01-23] MEDS ORDERED: KETOROLAC 30 MG/1 ML INJ IV ONE (11:47)
[2020-01-23] MEDS ORDERED: metroNIDAZOLE 500 MG TAB PO STA (11:47)
[2020-01-23] MEDS ORDERED: ACETAMINOPHEN 325 MG TAB PO PRN (11:48)
[2020-01-23 11:49] LABS: Amphetamine Screen,Urine Negative; Benzodiazepines Screen,Urine Negative; Cocaine Screen,Urine Negative; Methadone Screen,Urine Negative; Opiate Screen,Urine Negative
[2020-01-23 12:03] LABS: Cannabinoid Screen,Urine Positive
[2020-01-23 12:14] LABS: Ictotest,Urine Negative (Negative)
[2020-01-23] MEDS: FOLIC ACID 1 MG TAB PO SCH (12:35)
[2020-01-23] MEDS: POTASSIUM CHLORIDE 10 MEQ 10 MEQ/100 ML BAG IV SCH ×4 (12:38→18:05)
[2020-01-23] MEDS ORDERED: KETOROLAC 30 MG/1 ML INJ ONE (14:37)
[2020-01-23] MEDS ORDERED: metroNIDAZOLE 500 MG TAB ONE (14:38)
[2020-01-23] MEDS: DOXYCYCLINE 100 MG CAP PO SCH ×2 (14:42→22:00)
[2020-01-23] MEDS: MULTIVITAMINS ,THERAPEUTIC TAB PO SCH (14:43)
[2020-01-23] MEDS ORDERED: POTASSIUM CHLORIDE 10 MEQ 30 MEQ/300 ML BAG IV ONE (14:46)
[2020-01-23 14:51] LABS: Blood Urea Nitrogen 7 mg/dL (7-17); Calcium 7.9 mg/dL (8.4-10.2); Hemolysis Index 30
[2020-01-23 14:52] LABS: BUN/Creatinine Ratio 10
[2020-01-23] MEDS ORDERED: SODIUM CHLORIDE 0.9% 1000 ML 1,000 ML ONE (14:56)
[2020-01-24] MEDS: DOXYCYCLINE 100 MG CAP PO SCH ×2 (09:31→21:33)
[2020-01-24] MEDS: MULTIVITAMINS ,THERAPEUTIC TAB PO SCH (09:31)
[2020-01-24] MEDS: FOLIC ACID 1 MG TAB PO SCH (09:31)
[2020-01-24] MEDS: POTASSIUM CHLORIDE ER 20 MEQ TAB PO SCH (09:32)
[2020-01-24] MEDS: MAGNESIUM OXIDE 400 MG TAB PO SCH (09:32)
--- NOTE | 2020-01-24 10:55 | Consultation ---
History of Present Illness - Reason for Consult Consult date: 01/24/20 Reason for consult: MHE Requesting physician: TOMY BRADLEY - History of Present Psychiatric Illness Per ED Provider: Patient is a 29-year-old female. She is not known to myself previously. Apparently she has a history of bipolar and asthma. She is brought to the hospital by emergency medical services. Patient reportedly attempted to overdose on ecstasy and street drugs, unknown what time of ingestion, as well as alcohol. Reportedly, she was trying to commit suicide. After the reported ingestion, she apparently called 911. Police Department and EMS arrived at the scene, where they indicate that the patient was in a fpc house. EMS w reports to myself that patient may have fainted, there are no bystanders that can offer collateral information or additional history. Patient herself is intoxicated, disorganized and tearful. She states that she attempted to overdose on ecstasy, alcohol and street drugs. She is not sure if she took Tylenol or aspirin. She does not know exactly what time the ingestion took place. Patient also states that she has chest pain which she has difficulty describing. Patient also describes paralumbar and lower back pain, and abdominal pain. The patient is not sure if she hit her head. She is not sure if she is having headache, neck pain Patient is intoxicated, disorganized and a poor historian, she therefore has difficulty describing the qualitative nature of her symptoms. She indicates that her abdominal pain increases with palpation. She does not describe exacerbating or relieving factors for her chest pain, or lower back pain. She states that she is depressed and suicidal. She has difficulty further elaborating on this. PER MHE: Pt is a 29 year old AA female; Per triage note, "pt states that she attempted to commit suicide by taking 5 ecstasy pills. Pt also admits to drinking ETOH." Pt reports that she carries a diagnosis of Bipolar, Depression and Anxiety. "I came here (this ED) when I tried to commit suicide and I didn't go get my medicines filled when I left here... I don't know why. I should have." Pt has no history of inpatient psyc treatment and pt has never been seen by an outpatient provider. Pt reports that she is back and forth at her mother's home and, "a rooming house." Pt reports that she does not have a steady source of income; pt does not receive disability. 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 Pt has no children and is single. Pt reports she uses Alcohol, cocaine, weed and ecstacy. Pt reports drinking, "it can be three big bottles of whatever I can get my hands on... liquor, wine, whatever I can get." Pt reports withdrawal symptoms of stomach pain, vomiting, anxiety, shakes. Pt THC, ecstacy and cocaine daily. Pt is actively vomiting during assessment. Pt reports suicide attempt by, "taking 5 ecstacy probably more, some other pills and alcohol and cocaine I took alot I can't remember." "I get sad and depressed and stressed and lock myself in my room.. if anything happens I can't handle it; so, I tried to kill myself. I haven't been eating; I can't sleep because of these bad dreams that wake me right up cause I'm scared to sleep because of my own thoughts." Pt is tearful. Pt reports no active HI, but in the recent past, "the voices tell me to; it can be anyone I see or could be someone who made me mad that I want revenge on." PSYCH HPI Patient is a 29-year-old, single, employed -[place]izen [place] female who currently resides with family without any significant past psychiatric history or past medical history who presented to the ED via EMS with chief complaint of suicidal ideation with attempted plan to overdose after consuming pills. Patient reported that she has been having a lot of stress issues lately, reports she had recently just broken up with her boyfriend, they have been helping a lot and talking about the issue [id number], which added a significant amount of stress in addition to the stress she got from the Covid pandemic which resulted into having financial issues after reduced work hours at her place of current employment. Patient reports after thinking about all of these things she felt hopeless and helpless, she is the only child of her parents though mom and dad are supportive and the other day she just started drinking and drinking and then took some ecstasy pills. Patient reports she got ambulance by self, after she started feeling terrible. Reports she does not feel that way anymore, denying active suicidal thoughts auditory visual hallucinations. PAST PSYCHIATRIC HISTORY Diagnoses: None reported Suicide attempts or Self-harm behavior: None reported Prior psychiatric hospitalizations:None reported Substance Abuse history: Alcohol and pills Previous psychiatric medications tried: None reported Outpatient treatment: None reported PAST MEDICAL HISTORY: None reported Family Psychiatric History: None reported or documented SOCIAL HISTORY Marital Status: single Living Arrangements: with family Employment Status: employed Access to guns/weapons: None reported Education: College drop out History of Abuse: None reported Legal History: None reported REVIEW OF SYSTEMS Constitutional: Negative for weight loss ENT: Negative for stridor Respiratory: Negative for cough or hemoptysis All other systems reviewed and are negative MENTAL STATUS EXAMINATION General Appearance and Behavior: Age appropriate, good hygiene, wearing appropriate clothes,, good eye contact Cooperation: Participating/engaged, but Guarded Psychomotor Behavior: Psychomotor normal Mood: depressed Affect and affective range: irritable, labile Thought Process: illogical Thought Content: hopelessness, Speech: Normal rate, volume and rythm Intellectual Functioning: Average Suicidal Ideation: Passive Homicidal Ideation: Denies HI Impulse Control: Impaired Insight and Judgment: Limited insight and judgment Memory: Normal Attention: Normal Orientation: Alert, Diagnoses: Assessment and Plan - Psychiatric problem (1) Adjustment disorder Current Visit: Yes Status: Acute (2) Acute stress disorder Current Visit: Yes Status: Acute Treatment Plan MEDICATIONS: started on zoloft Risks, benefits and alternatives of medications discussed with the patient, questions answered and consent obtained from patient. PSYCHOTHERAPY: Supportive psychotherapy provided MEDICAL: Per primary team DELIRIUM PRECAUTIONS: Please re-orient patient frequently, keep lights on during the day, and minimize benzodiazepines and opiates as these medications could worsen patient's confusion. B2B SALES CONSULTANT: DISPOSITION: Do Recommend acute inpatient psychiatric hospitalization at this time LEGAL STATUS: 1013 FOLLOW-UP: Will follow Thank you for the consult. Please contact with any questions and/or concerns. Medications and Allergies Allergies Allergy/AdvReac Type Severity Reaction Status Date / Time No Known Allergies Allergy Unverified 01/23/20 05:56 Active Meds: Active Medications Acetaminophen (Tylenol) 650 mg PO Q6HR PRN PRN Reason: PAIN Dextrose (D50w (25gm) Vial) 50 gm IV Q30MIN PRN; Protocol PRN Reason: Hypoglycemia Doxycycline Hyclate (Vibramycin) 100 mg PO BID UMESH Stop: 02/05/20 22:01 Last Admin: 01/24/20 09:31 Dose: 100 mg Documented by: Folic Acid (Folvite) 1 mg PO QDAY UMESH Last Admin: 01/24/20 09:31 Dose: 1 mg Documented by: Haloperidol Lactate (Haldol) 5 mg IM Q6HR PRN PRN Reason: Agitation Last Admin: 01/23/20 12:35 Dose: 5 mg Documented by: Lorazepam (Ativan) 2 mg IM Q4HR PRN PRN Reason: Agitation Lorazepam (Ativan) 2 mg IV Q1HR PRN PRN Reason: CIWA-Ar 8-15 Lorazepam (Ativan) 4 mg IV Q1HR PRN PRN Reason: CIWA-Ar 16-25 Last Admin: 01/23/20 12:34 Dose: 4 mg Documented by: Lorazepam (Ativan) 4 mg IV Q15MIN PRN PRN Reason: CIWA-Ar >25 Magnesium Oxide (Mag-Ox) 400 mg PO QDAY [facility] Last Admin: 01/24/20 09:32 Dose: 400 mg Documented by: Multivitamins (Theragran Tab) 1 each PO QDAY [facility] Last Admin: 01/24/20 09:31 Dose: 1 each Documented by: Potassium Chloride (K-Dur) 40 meq PO QDAY [facility] Last Admin: 01/24/20 09:32 Dose: 40 meq Documented by: Mental Status Exam - Vital signs Last Vital Signs Temp 98.1 F 01/24/20 07:47 Pulse 90 01/24/20 07:47 Resp 18 01/24/20 08:43 BP 123/79 01/24/20 07:47 Pulse Ox 98 01/24/20 07:47 Results Result Diagrams: 01/23/20 06:31 01/23/20 14:20 Abnormal lab results 01/23/20 01/23/20 01/23/20 Range/Units 10:06 14:20 15:12 Sodium 131 L 132 L (137-145) mmol/L Potassium 3.5 L 3.5 L (3.6-5.0) mmol/L Chloride 89.8 L 96.7 L (98-107) mmol/L Carbon Dioxide 20 L (22-30) mmol/L Glucose 115 H 109 H (65-100) mg/dL POC Glucose 197 H (70-105) mg/dL Calcium 7.9 L D (8.4-10.2) mg/dL Magnesium 1.20 L 1.60 L (1.7-2.3) mg/dL Ur Specific [place] (1.003-1.030) Urine WBC (Auto) (0.0-6.0) /HPF 01/23/20 Range/Units Unknown Sodium (137-145) mmol/L Potassium (3.6-5.0) mmol/L Chloride (98-107) mmol/L Carbon Dioxide (22-30) mmol/L Glucose (65-100) mg/dL POC Glucose (70-105) mg/dL Calcium (8.4-10.2) mg/dL Magnesium (1.7-2.3) mg/dL Ur Specific [place] > 1.059 H (1.003-1.030) Urine WBC (Auto) 11.0 H (0.0-6.0) /HPF All other labs normal. Assessment and Plan - Psychiatric problem (1) Adjustment disorder Current Visit: Yes Status: Acute (2) Acute stress disorder Current Visit: Yes Status: Acute
[2020-01-24] MEDS: SERTRALINE 50 MG TAB PO SCH (13:50)
[2020-01-25 08:08] VITALS: BP 139/89
--- NOTE | 2020-01-25 10:54 | Progress Note ---
Subjective - Reason for Consult Consult date: 01/25/20 Reason for consult: MHE Requesting physician: TOMY BRADLEY - Chief Complaint Chief complaint: Psych progress Patient reports feeling much better today, patient reported compliance with medication, reports she has been watching sitcomms on TV and enjoyed the programs because she laughed, she endorses speaking with her family most especially her mom was being very supportive. Patient denies any suicidal thoughts at this moment. And agrees to follow-up outpatient REVIEW OF SYSTEMS Constitutional: Negative for weight loss ENT: Negative for stridor Respiratory: Negative for cough or hemoptysis All other systems reviewed and are negative MENTAL STATUS EXAMINATION General Appearance and Behavior: Age appropriate, good hygiene, wearing appropriate clothes,, good eye contact Cooperation: Participating/engaged, but Guarded Psychomotor Behavior: Psychomotor normal Mood: Much better Affect and affective range: congruent with mood Thought Process: logical Thought Content: within reality Speech: Normal rate, volume and rythm Intellectual Functioning: Average Suicidal Ideation: denies Homicidal Ideation: Denies HI Impulse Control: Impaired Insight and Judgment: Limited insight and judgment Memory: Normal Attention: Normal Orientation: Alert, Diagnoses: Assessment and Plan - Psychiatric problem (1) Adjustment disorder Current Visit: Yes Status: Acute (2) Acute stress disorder Current Visit: Yes Status: Acute Treatment Plan MEDICATIONS: started on zoloft Risks, benefits and alternatives of medications discussed with the patient, questions answered and consent obtained from patient. PSYCHOTHERAPY: Supportive psychotherapy provided MEDICAL: Per primary team DELIRIUM PRECAUTIONS: Please re-orient patient frequently, keep lights on during the day, and minimize benzodiazepines and opiates as these medications could worsen patient's confusion. 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 Please contact with any questions and/or concerns. Mental Status Exam - Vital signs Last Vital Signs Temp 98.6 F 01/25/20 08:07 Pulse 70 01/25/20 08:07 Resp 18 01/25/20 08:07 BP 139/89 01/25/20 08:07 Pulse Ox 99 01/25/20 08:07 Assessment and Plan - Patient Problems (1) Adjustment disorder Current Visit: Yes Status: Acute (2) Acute stress disorder Current Visit: Yes Status: Acute
[2020-01-25] MEDS: MULTIVITAMINS ,THERAPEUTIC TAB PO SCH (12:05)
[2020-01-25] MEDS: FOLIC ACID 1 MG TAB PO SCH (12:06)
[2020-01-25] MEDS: SERTRALINE 50 MG TAB PO SCH (12:06)
[2020-01-25] MEDS: POTASSIUM CHLORIDE ER 20 MEQ TAB PO SCH (12:06)
[2020-01-25] MEDS: DOXYCYCLINE 100 MG CAP PO SCH (12:06)
[2020-01-25] MEDS: MAGNESIUM OXIDE 400 MG TAB PO SCH (12:07)
== END 2020-01-25 14:23 | disposition home or self-care (01) ==
LOC: EDSEX → ED 05:35 → EEVIPCON 05:35 → ED 01-25 14:23
DX: A59.9 Trichomoniasis, unspecified (principal); N73.0 Acute parametritis and pelvic cellulitis; F43.20 Adjustment disorder, unspecified; F43.0 Acute stress reaction; K70.9 Alcoholic liver disease, unspecified; N83.209 Unspecified ovarian cyst, unspecified side; N70.11 Chronic salpingitis; E87.6 Hypokalemia; E83.42 Hypomagnesemia; F31.9 Bipolar disorder, unspecified; J45.909 Unspecified asthma, uncomplicated; F17.200 Nicotine dependence, unspecified, uncomplicated; F12.90 Cannabis use, unspecified, uncomplicated; F14.90 Cocaine use, unspecified, uncomplicated; R45.851 Suicidal ideations; D69.6 Thrombocytopenia, unspecified; Z00.8 Encounter for other general examination; Z87.898 Personal history of other specified conditions; Z91.89 Other specified personal risk factors, not elsewhere classified
CPT/HCPCS: 36415; 70450; 71045; 72125; 74177; 76705; 76830; 80048; 80053; 80178; 80307; 81001; 82550; 82962; 83690; 83735; 84484; 84702; 85027; 85379; 85610; 85730; 87076; 87086; 87186; 87210; 87591; 93005; 93975; 96365; 96366; 96367; 96368; 96372; 96375; 99285; J0696; J1630; J1885; J2060; J2405; J3411; J3475; J3480; J7030; Q9967; 80320; G0480

== ENCOUNTER 2020-12-25 17:37 | Emergency (ER) | payer MEDICAID ==
--- NOTE | 2020-12-25 19:02 | Event Note ---
ED Screening Note Date of service: 12/25/20 Time: 18:55 ED Screening Note: Patient presents with complaints of rash till lower abdomen and feet for 4 weeks She states she was diagnosed with diabetes 1 month ago and denies being on any treatment Patient then goes on to say that she is having suicidal thoughts for the past 3 weeks and has been using an array of drugs including meth, cocaine, and marijuana She states she does not feel safe She states she has a plan to harm herself, however does not wish to stay with that plan is This initial assessment/diagnostic orders/clinical plan/treatment(s) is/are subject to change based on patients health status, clinical progression and re-assessment by fellow clinical providers in the ED. Further treatment and workup at subsequent clinical providers discretion. Patient/guardian urged not to elope from the ED as their condition may be serious if not clinically assessed and managed. Initial orders include: Mental health eval Labs
[2020-12-25 19:28] LABS: Hematocrit 35.6 % (30.3-42.9); Hemoglobin 11.7 gm/dl (10.1-14.3); Mean Corpuscular HGB Conc 33 % (30-34); Mean Corpuscular Volume 82 fl (79-97); Platelet Count 376 K/mm3 (140-440); Red Blood Count 4.35 M/mm3 (3.65-5.03)
--- NOTE | 2020-12-25 19:40 | Emergency Department Report ---
HPI - General Chief Complaint: Psych Time Seen by Provider: 12/25/20 18:33 - HPI HPI: MSE 1 The patient is a 30-year-old female present with a chief complaint of abdominal wound and suicidal ideation. Patient states she initially came to the emergency department for evaluation of a wound on her left abdomen. Patient states she initially had a "boil" in her left lower quadrant of her abdomen that eventually turned to an ulceration. The patient states she saw physician was given a prescription for "medicine." Patient denies history of fever. The patient also states for the past several months she is felt suicidal. Patient denies any attempts at harming herself and tells me she does not have a plan. ED Past Medical Hx - Past Medical History Hx Diabetes: Yes Hx Psychiatric Treatment: Yes (bipolar, depression) Hx Asthma: Yes - Surgical History Past Surgical History?: No - Family History Family history: no significant - Social History Smoking Status: Never Smoker Substance Use Type: Alcohol, Cocaine, Marijuana, Prescribed, Methamphetamines, Other - Medications Home Medications: Home Medications Medication Instructions Recorded Confirmed Last Taken Type DOXYCYCLINE Hyclate [Vibramycin 100 mg PO BID #24 tab 01/25/20 Unknown Rx CAP] Nitrofurantoin [place]/M-Cryst 100 mg PO Q12HR #14 capsule 01/25/20 Unknown Rx [Macrobid CAP] Sertraline [Zoloft] 50 mg PO DAILY #30 tablet 01/25/20 Unknown Rx ED Review of Systems ROS: Stated complaint: LOWER ABD RASH/ICHTING BURNING Other details as noted in HPI Constitutional: denies: fever Eyes: denies: eye pain ENT: denies: throat pain Respiratory: no symptoms reported Cardiovascular: denies: chest pain Endocrine: no symptoms reported Gastrointestinal: other (Skin ulceration) Genitourinary: denies: dysuria Musculoskeletal: denies: back pain Skin: lesions Neurological: denies: headache Psychiatric: suicidal thoughts Physical Exam - Physical Exam Vital Signs: Vital Signs 12/25/20 18:20 Temperature 98 F Pulse Rate 115 H Respiratory 18 Rate Blood Pressure 148/92 [Left] O2 Sat by Pulse 100 Oximetry Physical Exam: GENERAL: The patient is well-developed well-nourished female sitting in chair not appearing to be in acute distress. [] HEENT: Normocephalic. Atraumatic. Extraocular motions are intact. Patient has moist mucous membranes. NECK: Supple. Trachea midline CHEST/LUNGS: Clear to auscultation. There is no respiratory distress noted. HEART/CARDIOVASCULAR: Regular. There is no tachycardia. There is no gallop rub or murmur. ABDOMEN: Abdomen is soft, nontender. Patient has normal bowel sounds. There is no abdominal distention. There is a hypopigmented region in the left lower quadrant/inguinal region that appears chronic in nature with a central shallow ulceration. No active drainage appreciated. SKIN: There is no rash. There is no edema. There is no diaphoresis. There is a hypopigmented region in the left lower quadrant/inguinal region that appears chronic in nature with a central shallow ulceration. No active drainage appreciated. NEURO: The patient is awake, alert, and oriented. The patient is cooperative. The patient has no focal neurologic deficits. The patient has normal speech MUSCULOSKELETAL: There is no evidence of acute injury. ED Course Vital Signs 12/25/20 18:20 Temperature 98 F Pulse Rate 115 H Respiratory 18 Rate Blood Pressure 148/92 [Left] O2 Sat by Pulse 100 Oximetry ED Medical Decision Making - Lab Data Result diagrams: 12/25/20 18:56 12/25/20 18:56 - EKG Data -: EKG Interpreted by Ri EKG shows normal: sinus rhythm, axis, QRS complexes Rate: tachycardia (103 bpm) - EKG Data When compared to previous EKG there are: previous EKG unavailable Interpretation: other (No ischemic changes seen) - Differential Diagnosis Suicidal ideation, skin ulceration Critical care attestation.: If time is entered above; I have spent that time in minutes in the direct care of this critically ill patient, excluding procedure time. ED Disposition Clinical Impression: Suicidal ideation, Skin ulceration, Alcohol intoxication Disposition: [address] [place] [address] Is pt being admited?: No Does the pt Need Aspirin: No Condition: Stable Time of Disposition: 22:57 (Awaiting acceptance)
[2020-12-25 20:10] LABS: Alanine Aminotransferase 12 units/L (7-56); Albumin 4.8 g/dL (3.9-5); BUN/Creatinine Ratio 8; Blood Urea Nitrogen 5 mg/dL (7-17); Calcium 9.4 mg/dL (8.4-10.2); Hemolysis Index 0
[2020-12-25 21:34] LABS: Bacteria,Urine 1+ /HPF (Negative); Bilirubin,Urine NEG (Negative); Blood,Urine MOD (Negative); Color,Urine Yellow (Yellow); Mucus,Urine FEW /HPF; Urobilinogen,Urine < 2.0 mg/dL (<2.0)
[2020-12-25 21:42] LABS: Amphetamine Screen,Urine Negative; Benzodiazepines Screen,Urine Negative; Cannabinoid Screen,Urine Negative; Methadone Screen,Urine Negative; Opiate Screen,Urine Negative
[2020-12-25] MEDS ORDERED: LORazepam 1 MG TAB ONE (21:59)
[2020-12-25 22:03] LABS: Cocaine Screen,Urine Positive
[2020-12-25] MEDS ORDERED: MAGNESIUM SULFATE 2 GM/50 ML BAG IV ONE (22:35)
[2020-12-25] MEDS ORDERED: IBUPROFEN 800 MG TAB PO ONE (23:33)
[2020-12-25] MEDS ORDERED: THIAMINE 100 MG, FOLIC ACID 1 MG, MULTIPLE VITAMIN INJ, ADULT 10 ML in SODIUM CHLORIDE ... IV ONE (23:35)
[2020-12-26 01:31] LABS: Total Cells Counted 100
[2020-12-26 01:32] LABS: Anisocytosis 1+; Platelet Estimate Consistent w Auto
[2020-12-26] MEDS ORDERED: ONDANSETRON 4 MG ODT TAB PO ONE (07:54)
[2020-12-26] MEDS ORDERED: hydrOXYzine PAMOATE 25 MG CAP PO ONE (08:01)
--- NOTE | 2020-12-26 10:35 | Consultation ---
History of Present Illness - Reason for Consult Consult date: 12/26/20 Reason for consult: mental health eval - History of Present Psychiatric Illness Per ED Note: The patient is a 30-year-old female present with a chief complaint of abdominal wound and suicidal ideation. Patient states she initially came to the emergency department for evaluation of a wound on her left abdomen. Patient states she initially had a "boil" in her left lower quadrant of her abdomen that eventually turned to an ulceration. The patient states she saw physician was given a prescription for "medicine." Patient denies history of fever. The patient also states for the past several months she is felt suicidal. Patient denies any attempts at harming herself and tells me she does not have a plan. Ankur Frost is a 30 year old female with history of Bipolar, and Schizophrenia. In my interview with the patient, she is calm. The patient reports non compliance with psychotropic medications. She reports on going depre ssion and racing thoughts that is ongoing for about 1-2 years now. She reports using alcohol and Cocaine, unable to state amount but states " I was overdoing it." She reports passive suicidal ideation without a plan; she endorses auditory hallucinations" voices telling me to kill myself." PAST PSYCHIATRIC HISTORY Diagnoses: Bipolar, Schizophrenia Suicide attempts or Self-harm behavior: Denies Prior psychiatric hospitalizations:Yes Substance Abuse history: Alcohol, cocaine Previous psychiatric medications tried: unable to recall Outpatient treatment: Denied SOCIAL HISTORY Marital Status: Single Living Arrangements: Lives with mother Employment Status: employed Access to guns/weapons: Denied Education: 10th grade History of Abuse: Denied Legal History: None reported REVIEW OF SYSTEMS Constitutional: Negative for weight loss ENT: Negative for stridor Respiratory: Negative for cough or hemoptysis All other systems reviewed and are negative MENTAL STATUS EXAMINATION General Appearance and Behavior: Age appropriate, dressed appropriately, calm and uncooperative Cooperation: Cooperative Psychomotor Behavior: psychomotor normal Mood: " depressed" Affect and affective range: congruent with stated mood Thought Process: racing thoughts Thought Content: passive suicidal Speech: Normal volume, Regular rate and rhythm, Intellectual Functioning: Average Suicidal Ideation: Yes Homicidal Ideation: denies Hallucinations:Auditory Delusions: None elicited Impulse Control: Unimpaired Insight and Judgment: limited insight and judgment, Memory: Normal Attention: divided Orientation: Alert, oriented Assessment and Plan (1) Bipolar (2) Treatment plan Discontinue 1013 Seroquel 25mg po BID Depakote 250mgpo BID Continue previous prescribed meds Risks, benefits and alternatives of medications discussed with the patient, questions answered and consent obtained from patient. PSYCHOTHERAPY: Supportive psychotherapy provided MEDICAL: Per primary team DELIRIUM PRECAUTIONS: Please re-orient patient frequently, keep lights on during the day, and minimize benzodiazepines and opiates as these medications could worsen patient's confusion. 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 Will sign off. Thank you for the consult. Please contact with any questions and/or concerns. Case staffed with Dr. Escobar Medications and Allergies Allergies Allergy/AdvReac Type Severity Reaction Status Date / Time No Known Allergies Allergy Verified 12/25/20 18:22 Home Medications Medication Instructions Recorded Confirmed Last Taken Type DOXYCYCLINE Hyclate [Vibramycin 100 mg PO BID #24 tab 01/25/20 12/26/20 Unknown Rx CAP] Nitrofurantoin [place]/M-Cryst 100 mg PO Q12HR #14 capsule 01/25/20 12/26/20 Unknown Rx [Macrobid CAP] Sertraline [Zoloft] 50 mg PO DAILY #30 tablet 01/25/20 12/26/[address] [DepaKOTE DR] 250 mg PO BID 30 Days #60 tablet 12/26/20 Unknown Rx QUEtiapine [SEROquel] 25 mg PO BID 30 Days #60 tablet 12/26/20 Unknown Rx Mental Status Exam - Vital signs Last Vital Signs Temp 97.4 F L 12/26/20 08:16 Pulse 102 H 12/26/20 08:16 Resp 18 12/26/20 08:16 BP 142/82 12/26/20 08:16 Pulse Ox 99 12/26/20 08:16 Results Result Diagrams: 12/25/20 18:56 12/25/20 18:56 Abnormal lab results 12/25/20 12/25/20 12/25/20 Range/Units 18:56 18:56 18:56 MCH 27 L (28-32) pg RDW 19.0 H (13.2-15.2) % Seg Neuts % (Manual) 33.0 L (40.0-70.0) % Lymphocytes % (Manual) 56.0 H (13.4-35.0) % Basophils % (Manual) 5.0 H (0.0-1.8) % Seg Neutrophils # Man 1.6 L (1.8-7.7) K/mm3 Basophils # (Manual) 0.2 H (0.0-0.1) K/mm3 Chloride 96.1 L (98-107) mmol/L BUN 5 L (7-17) mg/dL Glucose 108 H (65-100) mg/dL Total Protein 10.0 H (6.3-8.2) g/dL Salicylates < 0.3 L (2.8-20.0) mg/dL Acetaminophen (10.0-30.0) ug/mL Plasma/Serum Alcohol (0-0.07) % 12/25/20 12/25/20 Range/Units 18:56 18:56 MCH (28-32) pg RDW (13.2-15.2) % Seg Neuts % (Manual) (40.0-70.0) % Lymphocytes % (Manual) (13.4-35.0) % Basophils % (Manual) (0.0-1.8) % Seg Neutrophils # Man (1.8-7.7) K/mm3 Basophils # (Manual) (0.0-0.1) K/mm3 Chloride (98-107) mmol/L BUN (7-17) mg/dL Glucose (65-100) mg/dL Total Protein (6.3-8.2) g/dL Salicylates (2.8-20.0) mg/dL Acetaminophen 5.0 L (10.0-30.0) ug/mL Plasma/Serum Alcohol 0.34 H (0-0.07) % All other labs normal.
--- NOTE | 2020-12-26 10:54 | Event Note ---
Date: 12/26/20 The patient was evaluated in the emergency department for symptoms described in the history of present illness. He/she was evaluated in the context of the global COVID-19 pandemic, which necessitated consideration that the patient might be at risk for infection with the virus that causes COVID-19. Institutional protocols and algorithms that pertain to the evaluation of patients at risk for COVID-19 are in a state of rapid change based on information released by regulatory bodies including the CDC and federal and state organizations. These policies and algorithms were followed during the patient's care in the emergency department. Please note that these policies, procedures and recommendations changed on a rapid basis. Laboratory studies, vital signs, nursing documentation, ER documentation, and psychiatric documentation are reviewed and appreciated. Nursing team reports no acute events this morning or concerns. The patient is awake and ambulating and does not appear to be in any acute distress. The patient was deemed medically suitable for psychiatric disposition and placement on her initial ER evaluation. She appears to have a chronic wound. From her initial ER documentation, it does not appear that the wound is acutely decompensated or acutely infected. The patient was deemed medically suitable for psychiatric disposition and placement during his initial ER evaluation. The patient continues to remain medically suitable for psychiatric placement and disposition. SHe is currently pending psychiatric placement. At this point in time, the drift psychiatry note has recommended outpatient discharge. Once this note is finalized and signed, presuming no changes in the recommendation, we will discharge this patient. The patient at the moment is awake, alert, oriented, ambulates with a steady gait, and is of sound mind. Suspect that initial presentation likely secondary to polysubstance intoxication 12/26/2020; 14: 20 The patient continues to endorse suicidality. She also endorses depression to the staff. In my opinion, it is not safe to discharge this patient. Furthermore, this patient has required 1013 in the past, and I am requesting a second psychiatric opinion/ psychiatric attending consult on this patient for further recommendations. Nursing team has also endorsed to myself that they feel like it would be unsafe to discharge this patient at this time. The patient remains medically suitable for psychiatric disposition at this time. 1013 filled out by myself at this time. It is my opinion that given the patient's persistent suicidality, and endorsement of hallucinations, in conjunction with her prior history, that it is not psychiatrically safe to discharge this patient. Vital Signs 12/25/20 12/25/20 12/25/20 18:20 21:33 21:34 Temperature 98 F 97.8 F Pulse Rate 115 H 114 H Respiratory 18 18 Rate Blood Pressure 148/92 131/86 [Left] O2 Sat by Pulse 100 100 100 Oximetry 12/25/20 12/26/20 12/26/20 23:50 06:00 08:16 Temperature 98.7 F 97.4 F L Pulse Rate 64 102 H Respiratory 20 20 18 Rate Blood Pressure 133/74 142/82 [Left] O2 Sat by Pulse 99 99 Oximetry Lab Results 12/25/20 12/25/20 12/25/20 Range/Units 18:46 18:56 18:56 WBC 4.8 (4.5-11.0) K/mm3 RBC 4.35 (3.65-5.03) M/mm3 Hgb 11.7 (10.1-14.3) gm/dl Hct 35.6 (30.3-42.9) % MCV 82 (79-97) fl MCH 27 L (28-32) pg MCHC 33 (30-34) % RDW 19.0 H (13.2-15.2) % Plt Count 376 (140-440) K/mm3 Lymph % (Auto) Inductor Tester Add Manual Diff Complete Total Counted 100 Seg Neuts % (Manual) 33.0 L (40.0-70.0) % Lymphocytes % (Manual) 56.0 H (13.4-35.0) % Monocytes % (Manual) 6.0 (0.0-7.3) % Basophils % (Manual) 5.0 H (0.0-1.8) % Nucleated RBC % Not Reportable Seg Neutrophils # Man 1.6 L (1.8-7.7) K/mm3 Band Neutrophils # 0.0 K/mm3 Lymphocytes # (Manual) 2.7 (1.2-5.4) K/mm3 Abs React Lymphs (Man) 0.0 K/mm3 Monocytes # (Manual) 0.3 (0.0-0.8) K/mm3 Eosinophils # (Manual) 0.0 (0.0-0.4) K/mm3 Basophils # (Manual) 0.2 H (0.0-0.1) K/mm3 Metamyelocytes # 0.0 K/mm3 Myelocytes # 0.0 K/mm3 Promyelocytes # 0.0 K/mm3 Blast Cells # 0.0 K/mm3 WBC Morphology Not Reportable Hypersegmented Neuts Not Reportable Hyposegmented Neuts Not Reportable Hypogranular Neuts Not Reportable Smudge Cells Not Reportable Toxic Granulation Not Reportable Toxic Vacuolation Not Reportable Dohle Bodies Not Reportable Pelger-Huet Anomaly Not Reportable Rosemarie Rods Not Reportable Platelet Estimate Consistent w auto Clumped Platelets Not Reportable Plt Clumps, EDTA Not Reportable Large Platelets Not Reportable Giant Platelets Not Reportable Platelet Satelliting Not Reportable Plt Morphology Comment Not Reportable RBC Morphology Not Reportable Dimorphic RBCs Not Reportable Polychromasia Not Reportable Hypochromasia Not Reportable Poikilocytosis Not Reportable Anisocytosis 1+ Microcytosis Not Reportable Macrocytosis Not Reportable Spherocytes Not Reportable Pappenheimer Bodies Not Reportable Sickle Cells Not Reportable Target Cells Not Reportable Tear Drop Cells Not Reportable Ovalocytes Not Reportable Helmet Cells Not Reportable [place] Bodies Not Reportable [place] Not Reportable [place] Cells Not Reportable Bite Cells Not Reportable Crenated Cell Not Reportable Elliptocytes Not Reportable Acanthocytes (Spur) Not Reportable Rouleaux Not Reportable Hemoglobin C Crystals Not Reportable Schistocytes Not Reportable Malaria parasites Not Reportable Jean Bodies Not Reportable Hem Pathologist Commnt No Sodium 139 (137-145) mmol/L Potassium 4.0 (3.6-5.0) mmol/L Chloride 96.1 L (98-107) mmol/L Carbon Dioxide 23 (22-30) mmol/L Anion Gap 24 mmol/L BUN 5 L (7-17) mg/dL Creatinine 0.6 (0.6-1.2) mg/dL Estimated GFR > 60 ml/min BUN/Creatinine Ratio 8 % Glucose 108 H (65-100) mg/dL POC Glucose 92 (70-105) mg/dL Calcium 9.4 (8.4-10.2) mg/dL Total Bilirubin 0.60 (0.1-1.2) mg/dL AST 23 (5-40) units/L ALT 12 (7-56) units/L Alkaline Phosphatase 89 (35-129) units/L Total Protein 10.0 H (6.3-8.2) g/dL Albumin 4.8 (3.9-5) g/dL Albumin/Globulin Ratio 0.9 % HCG, Qual (Negative) Urine Color (Yellow) Urine Turbidity (Clear) Urine pH (5.0-7.0) Ur Specific [place] (1.003-1.030) Urine Protein (Negative) mg/dL Urine Glucose (UA) (Negative) mg/dL Urine Ketones (Negative) mg/dL Urine Blood (Negative) Urine Nitrite (Negative) Urine Bilirubin (Negative) Urine Urobilinogen (<2.0) mg/dL Ur Leukocyte Esterase (Negative) Urine WBC (Auto) (0.0-6.0) /HPF Urine RBC (Auto) (0.0-6.0) /HPF U Epithel Cells (Auto) (0-13.0) /HPF Urine Bacteria (Auto) (Negative) /HPF Urine Mucus /HPF Salicylates (2.8-20.0) mg/dL Urine Opiates Screen Urine Methadone Screen Acetaminophen (10.0-30.0) ug/mL Ur Barbiturates Screen Ur Phencyclidine Scrn Ur Amphetamines Screen U Benzodiazepines Scrn Urine Cocaine Screen U Marijuana (THC) Screen Drugs of Abuse Note Plasma/Serum Alcohol (0-0.07) % 12/25/20 12/25/20 12/25/20 Range/Units 18:56 18:56 18:56 WBC (4.5-11.0) K/mm3 RBC (3.65-5.03) M/mm3 Hgb (10.1-14.3) gm/dl Hct (30.3-42.9) % MCV (79-97) fl MCH (28-32) pg MCHC (30-34) % RDW (13.2-15.2) % Plt Count (140-440) K/mm3 Lymph % (Auto) Add Manual Diff Total Counted Seg Neuts % (Manual) (40.0-70.0) % Lymphocytes % (Manual) (13.4-35.0) % Monocytes % (Manual) (0.0-7.3) % Basophils % (Manual) (0.0-1.8) % Nucleated RBC % Seg Neutrophils # Man (1.8-7.7) K/mm3 Band Neutrophils # K/mm3 Lymphocytes # (Manual) (1.2-5.4) K/mm3 Abs React Lymphs (Man) K/mm3 Monocytes # (Manual) (0.0-0.8) K/mm3 Eosinophils # (Manual) (0.0-0.4) K/mm3 Basophils # (Manual) (0.0-0.1) K/mm3 Metamyelocytes # K/mm3 Myelocytes # K/mm3 Promyelocytes # K/mm3 Blast Cells # K/mm3 WBC Morphology Hypersegmented Neuts Hyposegmented Neuts Hypogranular Neuts Smudge Cells Toxic Granulation Toxic Vacuolation Dohle Bodies Pelger-Huet Anomaly Rosemarie Rods Platelet Estimate Clumped Platelets Plt Clumps, EDTA Large Platelets Giant Platelets Platelet Satelliting Plt Morphology Comment RBC Morphology Dimorphic RBCs Polychromasia Hypochromasia Poikilocytosis Anisocytosis Microcytosis Macrocytosis Spherocytes Pappenheimer Bodies Sickle Cells Target Cells Tear Drop Cells Ovalocytes Helmet Cells [place] Bodies [place] Cells Bite Cells Crenated Cell Elliptocytes Acanthocytes (Spur) Rouleaux Hemoglobin C Crystals Schistocytes Malaria parasites Jean Bodies Hem Pathologist Commnt Sodium (137-145) mmol/L Potassium (3.6-5.0) mmol/L Chloride (98-107) mmol/L Carbon Dioxide (22-30) mmol/L Anion Gap mmol/L BUN (7-17) mg/dL Creatinine (0.6-1.2) mg/dL Estimated GFR ml/min BUN/Creatinine Ratio % Glucose (65-100) mg/dL POC Glucose (70-105) mg/dL Calcium (8.4-10.2) mg/dL Total Bilirubin (0.1-1.2) mg/dL AST (5-40) units/L ALT (7-56) units/L Alkaline Phosphatase (35-129) units/L Total Protein (6.3-8.2) g/dL Albumin (3.9-5) g/dL Albumin/Globulin Ratio % HCG, Qual Negative (Negative) Urine Color (Yellow) Urine Turbidity (Clear) Urine pH (5.0-7.0) Ur Specific [place] (1.003-1.030) Urine Protein (Negative) mg/dL Urine Glucose (UA) (Negative) mg/dL Urine Ketones (Negative) mg/dL Urine Blood (Negative) Urine Nitrite (Negative) Urine Bilirubin (Negative) Urine Urobilinogen (<2.0) mg/dL Ur Leukocyte Esterase (Negative) Urine WBC (Auto) (0.0-6.0) /HPF Urine RBC (Auto) (0.0-6.0) /HPF U Epithel Cells (Auto) (0-13.0) /HPF Urine Bacteria (Auto) (Negative) /HPF Urine Mucus /HPF Salicylates < 0.3 L (2.8-20.0) mg/dL Urine Opiates Screen Urine Methadone Screen Acetaminophen 5.0 L (10.0-30.0) ug/mL Ur Barbiturates Screen Ur Phencyclidine Scrn Ur Amphetamines Screen U Benzodiazepines Scrn Urine Cocaine Screen U Marijuana (THC) Screen Drugs of Abuse Note Plasma/Serum Alcohol (0-0.07) % 12/25/20 12/25/20 12/25/20 Range/Units 18:56 Unknown Unknown WBC (4.5-11.0) K/mm3 RBC (3.65-5.03) M/mm3 Hgb (10.1-14.3) gm/dl Hct (30.3-42.9) % MCV (79-97) fl MCH (28-32) pg MCHC (30-34) % RDW (13.2-15.2) % Plt Count (140-440) K/mm3 Lymph % (Auto) Add Manual Diff Total Counted Seg Neuts % (Manual) (40.0-70.0) % Lymphocytes % (Manual) (13.4-35.0) % Monocytes % (Manual) (0.0-7.3) % Basophils % (Manual) (0.0-1.8) % Nucleated RBC % Seg Neutrophils # Man (1.8-7.7) K/mm3 Band Neutrophils # K/mm3 Lymphocytes # (Manual) (1.2-5.4) K/mm3 Abs React Lymphs (Man) K/mm3 Monocytes # (Manual) (0.0-0.8) K/mm3 Eosinophils # (Manual) (0.0-0.4) K/mm3 Basophils # (Manual) (0.0-0.1) K/mm3 Metamyelocytes # K/mm3 Myelocytes # K/mm3 Promyelocytes # K/mm3 Blast Cells # K/mm3 WBC Morphology Hypersegmented Neuts Hyposegmented Neuts Hypogranular Neuts Smudge Cells Toxic Granulation Toxic Vacuolation Dohle Bodies Pelger-Huet Anomaly Rosemarie Rods Platelet Estimate Clumped Platelets Plt Clumps, EDTA Large Platelets Giant Platelets Platelet Satelliting Plt Morphology Comment RBC Morphology Dimorphic RBCs Polychromasia Hypochromasia Poikilocytosis Anisocytosis Microcytosis Macrocytosis Spherocytes Pappenheimer Bodies Sickle Cells Target Cells Tear Drop Cells Ovalocytes Helmet Cells [place] Bodies [place] Cells Bite Cells Crenated Cell Elliptocytes Acanthocytes (Spur) Rouleaux Hemoglobin C Crystals Schistocytes Malaria parasites Jean Bodies Hem Pathologist Commnt Sodium (137-145) mmol/L Potassium (3.6-5.0) mmol/L Chloride (98-107) mmol/L Carbon Dioxide (22-30) mmol/L Anion Gap mmol/L BUN (7-17) mg/dL Creatinine (0.6-1.2) mg/dL Estimated GFR ml/min BUN/Creatinine Ratio % Glucose (65-100) mg/dL POC Glucose (70-105) mg/dL Calcium (8.4-10.2) mg/dL Total Bilirubin (0.1-1.2) mg/dL AST (5-40) units/L ALT (7-56) units/L Alkaline Phosphatase (35-129) units/L Total Protein (6.3-8.2) g/dL Albumin (3.9-5) g/dL Albumin/Globulin Ratio % HCG, Qual (Negative) Urine Color Yellow (Yellow) Urine Turbidity Slightly-cloudy (Clear) Urine pH 6.0 (5.0-7.0) Ur Specific [place] 1.008 (1.003-1.030) Urine Protein 100 mg/dl (Negative) mg/dL Urine Glucose (UA) Neg (Negative) mg/dL Urine Ketones Neg (Negative) mg/dL Urine Blood Mod (Negative) Urine Nitrite Neg (Negative) Urine Bilirubin Neg (Negative) Urine Urobilinogen < 2.0 (<2.0) mg/dL Ur Leukocyte Esterase Tr (Negative) Urine WBC (Auto) 2.0 (0.0-6.0) /HPF Urine RBC (Auto) 2.0 (0.0-6.0) /HPF U Epithel Cells (Auto) 12.0 (0-13.0) /HPF Urine Bacteria (Auto) 1+ (Negative) /HPF Urine Mucus Few /HPF Salicylates (2.8-20.0) mg/dL Urine Opiates Screen Negative Urine Methadone Screen Negative Acetaminophen (10.0-30.0) ug/mL Ur Barbiturates Screen Negative Ur Phencyclidine Scrn Negative Ur Amphetamines Screen Negative U Benzodiazepines Scrn Negative Urine Cocaine Screen Positive U Marijuana (THC) Screen Negative Drugs of Abuse Note Disclamer Plasma/Serum Alcohol 0.34 H (0-0.07) %
[2020-12-26] MEDS: LORazepam 2 MG/ML VIAL IM PRN ×2 (16:15→20:07)
[2020-12-27] MEDS: diphenhydrAMINE 25 MG CAP PO PRN ×2 (00:33→08:34)
[2020-12-27] MEDS: LORazepam 2 MG/ML VIAL IM PRN (08:35)
[2020-12-27 09:49] VITALS: BP 125/81
--- NOTE | 2020-12-27 09:58 | Progress Note ---
Subjective - Reason for Consult Consult date: 12/27/20 Reason for consult: mental health evaluation - Chief Complaint Chief complaint: The patient was seen today. She continues to endorse suicidal ideation with a plan to run into a moving car. REVIEW OF SYSTEMS Constitutional: Negative for weight loss ENT: Negative for stridor Respiratory: Negative for cough or hemoptysis All other systems reviewed and are negative MENTAL STATUS EXAMINATION General Appearance and Behavior: Age appropriate, dressed appropriately, calm and uncooperative Cooperation: Cooperative Psychomotor Behavior: psychomotor normal Mood: " depressed" Affect and affective range: congruent with stated mood Thought Process: racing thoughts Thought Content: passive suicidal Speech: Normal volume, Regular rate and rhythm, Intellectual Functioning: Average Suicidal Ideation: Yes Homicidal Ideation: denies Hallucinations:Auditory Delusions: None elicited Impulse Control: Unimpaired Insight and Judgment: limited insight and judgment, Memory: Normal Attention: divided Orientation: Alert, oriented Assessment and Plan (1) Bipolar (2) Treatment plan Discontinue 1013 Seroquel 25mg po BID Depakote 250mgpo BID Continue previous prescribed meds Risks, benefits and alternatives of medications discussed with the patient, questions answered and consent obtained from patient. PSYCHOTHERAPY: Supportive psychotherapy provided MEDICAL: Per primary team DELIRIUM PRECAUTIONS: Please re-orient patient frequently, keep lights on during the day, and minimize benzodiazepines and opiates as these medications could worsen patient's confusion. 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 Will sign off. Thank you for the consult. Please contact with any questions and/or concerns. Case staffed with Dr. Escobar Medications and Allergies Mental Status Exam - Vital signs Last Vital Signs Temp 98.6 F 12/27/20 09:48 Pulse 82 12/27/20 09:48 Resp 16 12/27/20 09:48 BP 125/81 12/27/20 09:48 Pulse Ox 99 12/27/20 09:48
--- NOTE | 2020-12-27 10:31 | Event Note ---
Date: 12/27/20 Ms. Frost is a 30 years old female with history of schizophrenia. Patient presented to the ER with suicidal ideation and a plan to run into a moving traffic. Today patient is still endorsing suicidal ideation with the same plan. Vital signs stable. Labs reviewed and is unremarkable. Is waiting for inpatient psychiatric admission.
--- NOTE | 2020-12-29 10:13 | Electrocardiograph Report ---
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
== END 2020-12-27 11:51 ==
LOC: ED 17:37 → EEVIPCON 17:37 → ED 12-27 11:51
DX: R45.851 Suicidal ideations (principal); L98.499 Non-pressure chronic ulcer of skin of other sites with unspecified severity; F10.129 Alcohol abuse with intoxication, unspecified; E11.8 Type 2 diabetes mellitus with unspecified complications; F31.9 Bipolar disorder, unspecified; J45.909 Unspecified asthma, uncomplicated; F14.90 Cocaine use, unspecified, uncomplicated; F12.90 Cannabis use, unspecified, uncomplicated; Z20.822 Contact with and (suspected) exposure to COVID-19
CPT/HCPCS: 36415; 80053; 80307; 81001; 82962; 84703; 85007; 85025; 93005; 96365; 96366; 96367; 96372; 99285; J2060; J3411; J3475; J7030; Q0177; U0003; 80320; G0480; Q0162